=== PATIENT | female | born 1980 | race Caucasian/White ===

== ENCOUNTER 2024-02-06 13:27 | Observation (INO) | payer BC, SELFPAY ==
[2024-02-06 13:32] VITALS: BP 144/103; PULSE 132; RESP 20; TEMP 36.3; O2SAT 97; BMI 23.2
--- NOTE | 2024-02-06 14:25 | EX.ED.SAOD ---
HPI History of Present Illness Chief Complaint: Substance Abuse Informant: patient Onset/Context/Timing Onset: Today Context: Gradual Onset Timing: Continuous Worsened by: Nothing Relieved by: Nothing Associated Symptoms Associated Symptoms: Positive for diarrhea*, fever*, palpatations and no; Negative for vomiting*, rash*, seizure, tremor, change in mental status, suicidal ideation or homicidal ideation Narrative Narrative: Patient presents requesting detox from alcohol. Patient states she drinks approximately 1 case of beer per day. Patient also drinks some tequila drinks that are 9% alcohol. Patient drinks a 1-2 of these per day. Patient last use just prior to arrival in the emergency department. Patient admits to some diarrhea but denies any nausea or vomiting. Patient admits to some subjective fevers and chills. Patient also admits to some palpitations. Patient denies any chance of . Patient states she has been through detox in the past and was sober for 11 months before she relapsed 3 to 4 months ago. Patient states she has been drinking heavily for the past 2 months. PFSH PFSH Medical History Insomnia Anxiety Anemia Alcohol abuse Allergy/AdvReac Type Severity Reaction Status Date / Time codeine Allergy Mild Nausea Verified 02/06/24 13:31 Social History (Updated 02/06/24 @ 14:[address] Ej Rodríguez, DO) Smoking Status: Current every day smoker tobacco type: cigarettes alcohol intake: current alcohol intake frequency: 3 or more drinks per day Alcohol type: beer and hard liquor substance use type: marijuana ROS ROS ED Constitutional Constitutional ED: Reports chills, fever(s) and subjective Eyes Eyes: Denies blurry vision or change in vision ENT ENT ED: Reports rhinorrhea; Denies sore throat Cardiovascular Cardiovascular: Reports palpitations; Denies chest pain Respiratory/Chest Respiratory/Chest: Reports cough; Denies dyspnea Gastrointestinal Gastrointestinal: Reports diarrhea; Denies nausea or vomiting Genitourinary Genitourinary ED: Denies dysuria or hematuria Musculoskeletal Musculoskeletal: Denies back pain or neck pain Integumentary Denies abscess or rash Neurologic Neurologic: Denies headache(s) or weakness Allergic/Immunologic Allergic/Immunologic ED: Denies mouth swelling or urticaria EXAM Physical Exam Const Vital Signs: 02/06/24 13:32 Temperature 97.3 F L Temperature Source Temporal Pulse Rate 132 H Respiratory Rate 20 H Blood Pressure 144/103 H Blood Pressure Mean 116 Pulse Ox 97 Oxygen Delivery Method Room Air Positive well nourished and well developed General Appearance ED: well developed and NAD HEENT Reports moist mucous membranes Neck supple and no JVD Resp normal respiratory effort and clear to auscultation bilaterally Cardio regular rhythm Rate: tachycardic GI soft to palpation, non-tender and non-distended Neuro oriented x3, CN's II-XII intact bilaterally and no sensory deficits noted Lucas Coma Scale: document GCS findings Spontaneous Obeys Commands Oriented 15 Sensorium / Orientation: alert Psych mental status grossly normal and thought process normal MDM MDM MDM Narrative Medical decision making narrative: Medical screening labs will be obtained. CBC will be obtained to assess for leukocytosis and anemia. Basic metabolic profile will be obtained to assess for electrolyte abnormality and renal function. Serum alcohol level will be obtained to assess for alcohol intoxication. Urine drug screen will be obtained to assess for substance abuse. Serum hCG will be obtained to assess for . Treatment and Re-Evaluation Narrative: Case was discussed with the hospitalist. He will admit the patient to his service. Patient understood and was agreeable with the plan. All questions were answered. Discharge Plan Triage Chief Complaint: Substance Abuse ED Provider: Ej Rodríguez Dx/Rx/DC Orders Clinical Impression: Alcohol withdrawal, Tachycardia, Tobacco use disorder, Marijuana use Print Language: Lithuanian Disposition Disposition: Acute Care Hospital [facility]
[2024-02-06 14:41] LABS: Absolute Lymphocyte Count 2.58 X10^3/uL (0.83-4.51); Absolute Neutrophil Count 7.1 X10^3/uL (2.0-7.7); Basophil% 0.9 % (0-1); Eosinophil# 0.07 X10^3/uL; Eosinophils% 0.7 % (0-5); Hematocrit 49.9 % (37-47); Hemoglobin 16.5 g/dL (12.0-15.0); Lymphocyte # 2.58 X10^3/ul (0.83-4.51); Lymphocyte % 24.4 % (19-41); Mean Corp Hgb Conc 33.1 g/dL (32-36); Mean Corpuscular Hgb 31.3 pg (27.0-32.0); Mean Corpuscular Volume 94.5 fL (81-99); Mean Platelet Vol. 11.8 fl (6.2-12.0); Monocyte# 0.69 X10^3/uL; Monocyte% 6.5 % (0-10); NRBC Flagged by Analyzer 0 % (0-5); Neutrophil # 7.09 X10^3/uL (2.7-7.7); Neutrophil % 67.2 % (47-70); POSITIVE COUNT YES; Platelet Count 197 K/mm3 (150-450); RBC Distribution Width CV 13.7 % (11.6-14.6); RBC Distribution Width SD 47.8 fl (35.1-43.9); Red Blood Count 5.28 M/mm3 (4.2-5.4); White Blood Count 10.6 K/mm3 (4.4-11.0)
--- NOTE | 2024-02-06 14:55 | HP.PCM.HOS_ITS ---
HPI - General General Date of Admission: 02/06/24 Date of Service: 02/06/24 Chief Complaint: Wants alcohol detoxification/rehab HPI Narrative MAKEDA CHAIDEZ, is a 44 F with history of chronic alcohol use dependence, relapse and tolerance came to ED for alcohol detox and quitting. She usually drinks 24 beers tall boys every day. She had 3-4 beers today in the morning before she came to ED. She further said she was sober for 11 months and then started drinking 1 or 2 beer occasionally in June but for last few months she is drinking regularly. She was drinking tequila before being sober. But lately she has a strong physical craving for hard liquor but not drinking tequila but instead she drinking twisted tea or Mon[place] which is 9% alcohol. She also smokes a pack per day cigarettes and smokes marijuana. Denies other substance use including opioids, crack cocaine, ecstasy, bath salt or other antipsychotic drugs In ED, she is feeling withdrawal symptoms of numbness, anxiety, urge to move around/restlessness. No will tremors or DT She denies history of chronic alcoholic hepatitis or cirrhosis or other chronic stigmata of chronic liver disease. No fever Patient is further admitted [facility] Medical History Insomnia Anxiety Anemia Alcohol abuse Home Medications ?Medication ?Instructions ?Recorded ?Last Taken ?Type acamprosate 333 mg tablet,delayed 666 mg PO TID ALCOHOL DEPENDENCE 02/06/24 Unknown History release hydroxyzine pamoate 50 mg capsule 50 mg PO QHS ANXIETY 02/06/24 Unknown History norethindrone (contraceptive) 0.35 0.35 mg PO DAILY CONTROL 02/06/24 Unknown History mg tablet Allergy/AdvReac Type Severity Reaction Status Date / Time codeine Allergy Mild Nausea Verified 02/06/24 13:31 Social History Smoking Status: Current every day smoker tobacco type: cigarettes alcohol intake: current alcohol intake frequency: 3 or more drinks per day Alcohol type: beer and hard liquor substance use type: marijuana ROS ROS Narrative Constitutional: Reports fatigue and weakness. No fever. HEENT: Reports systems reviewed and no addt'l complaints, except as documented Respiratory/Chest: No acute shortness of breath or respiratory distress or wheezing. CVS: No chest pain pressure or tightness. Gastrointestinal: Denies coffee ground emesis, hematemesis or vomiting Genitourinary: Denies burning urination or new urinary tract symptoms Musculoskeletal: Denies acute joint pain or limited range of motion. No acute injury Neurologic: Denies seizure-like symptoms. No withdrawal seizure Psychiatric: Chronic alcohol use as described in HPI skin: No ulcer. No rash Endocrinology: Reports systems reviewed and no addt'l complaints, except as documented Hematologic/Lymphatic: Reports systems reviewed and no addt'l complaints, except as documented Rest 14 ROS are negative except as mentioned in HPI Vital Signs Vital Signs Vital Signs: 02/06/24 13:32 Temperature 97.3 F L Temperature Source Temporal Pulse Rate 132 H Respiratory Rate 20 H Blood Pressure 144/103 H Blood Pressure Mean 116 Pulse Ox 97 Oxygen Delivery Method Room Air Weight Weight: 133 lb 4.8 oz Body Mass Index (BMI) 23.2 Physical Exam Narrative General: Alert, Oriented x3, Cooperative HEENT: Atraumatic, PERRLA, EOMI, Normocephalic Oral: Oral mucosa dry no Gingival or Mucosal Lesions/ Ulcerations Neck: Supple, No JVD, Negative Carotid Bruits Chest wall/Lungs: Air entry diminished in bilateral lung bases. No crepitation/rhonchi Cardiovascular: Regular rate, Regular Rhythm, Normal S1, Normal S2, No M/G/R Abdomen: Bowel Sounds Present, Soft, Non Tender, Non-Distended : No dysuria. No renal angle tenderness. No suprapubic tenderness. Extremities: No edema, Capillary Refill Less than 3 Seconds Skin: No rashes, No breakdown Musculoskeletal: No Tenderness to Palpation of Joints or Extremities. ROM intact Neurological: Cranial nerves II-XII grossly intact, DTR 2+/4. No acute focal neurological deficit. Psych/Mental Status: Flat affect. Results Lab / Micro Data 02/06/24 14:20 02/06/24 14:20 Assessment & Plan Assessment/Plan (1) Alcohol withdrawal delirium, acute, hyperactive: PLAN: Plan This is a 44-year-old female being admitted for medical stabilization of acute alcohol withdrawal symptoms 1. Acute hyperactive alcohol withdrawal syndrome with history of chronic alcohol use, dependence, tolerance and relapse: Patient is being admitted on [facility] floor. Patient on phenobarbital based order set along with other adjunctive medications gabapentin, Bentyl, Vistaril, clonidine, Klonopin as needed for alcohol withdrawal symptom control. Patient is on thiamine and folate acid. CIWA monitor. catering sales manager 180 consulted. U tox is ordered. 2. Chronic smoking, nicotine dependence and marijuana use: Nicotine transdermal ordered. 3. Denies chronic alcoholic hepatitis or other liver disease: Labs CMP is ordered but technical problem with the analyzer. DVT prophylaxis: Low risk. Early ambulation encouraged. No prophylaxis indicated Laboratory Results 02/06/24 14:20: WBC 10.6, RBC 5.28, Hgb 16.5 H, Hct 49.9 H, MCV 94.5, MCH 31.3, MCHC 33.1, RDW Std Deviation 47.8 H, RDW Coeff of [place] 13.7, Plt Count 197, MPV 11.8, Immature Gran % (Auto) 0.300, Neut % (Auto) 67.2, Lymph % (Auto) 24.4, [place] % (Auto) 6.5, Eos % (Auto) 0.7, Baso % (Auto) 0.9, Absolute Neuts (auto) 7.1, Absolute Lymphs (auto) 2.58, Nucleated RBC % 0, Differential Comment SCANNED, Sodium Cancelled Charges/Coding Visit Charges Inpatient E&M: 39872 Init Hosp L3
[2024-02-06 15:07] LABS: Internal QC Validated? YES +Cl - CLEAR BKGD; Pregnancy, Serum, hCG Quali. NEGATIVE Negative
[2024-02-06 15:09] VITALS: BP 129/73; PULSE 84; RESP 18; TEMP 36.6; O2SAT 99
[2024-02-06 15:28] VITALS: BP 124/81; PULSE 89; RESP 18; O2SAT 100
[2024-02-06 15:37] LABS: Differential Indicated SCAN CRITERIA MET
[2024-02-06 15:41] LABS: Differential Comment SCANNED
[2024-02-06 16:16] LABS: Mucous, Urine 0 SEEN /hpf (<or=2+)
[2024-02-06 16:27] LABS: Color, Urine Yellow (Yellow); Glucose, Dipstick Normal (Normal); Ketone-Dipstick Negative (Negative); Leukocyte Esterase-Dipstick 500 /ul (Negative); Nitrite-Dipstick Negative (Negative); Occult Blood-Urine 25 /ul (Negative); Protein-Dipstick Negative (Negative); Specific Gravity, Urine 1.005 (1.002-1.030); Urine Bilirubin Dipstick Negative (Negative); Urine Clarity Sl. Cloudy (Clear); Urine Urobilinogen 1 mg/dl (Normal); Urine pH 6.5 (5.0 - 8.0)
[2024-02-06 16:42] LABS: White Blood Cells 10-25 SEEN /hpf (0-5)
[2024-02-06 16:43] LABS: Bacteria 1+ /hpf (None Seen); Red Blood Cells-Urine 0-5 SEEN /hpf (0-5); Squamous Epithelial Cells - UA 0-5 SEEN /hpf (5-10)
[2024-02-06 16:54] VITALS: BMI 20.1
[2024-02-06] MEDS: Phenobarbital 32.4 MG Tablet 64.8 MG PO ×2 (17:12→20:06)
[2024-02-06] MEDS: Lactated Ringers 1,000 ML 125 ML IV (17:12)
[2024-02-06] MEDS: hydrOXYzine PAM 25 MG Capsule 50 MG PO (17:26)
[2024-02-06 17:50] LABS: Prothrombin Time (Protime)PT. 13.6 SECONDS (11.7-14.9)
[2024-02-06 18:17] LABS: AST(SGOT) 93 U/L (15-37); Alanine Aminotransfer ALT/SGPT 104 U/L (13-56); Albumin, Serum 4.2 g/dL (3.2-5.0); Alkaline Phosphatase 51 U/L (45-117); Anion Gap 6 (5-15); BUN 3 mg/dL (7-18); BUN/Creat Ratio 4.1 RATIO (10-20); Calcium,Total 9.4 mg/dL (8.5-10.1); Chloride 106 mmol/L (98-107); Creatinine, Serum 0.73 mg/dL (0.55-1.02); EST Glomerular Filtration Rate 93 mL/min (>60); Est Glom Filt Rate - Afr Amer 112 mL/min (>60); Globulin 4.1 g/dL (2.2-4.2); Glucose 89 mg/dL (74-106); Potassium 4.3 mmol/L (3.5-5.1); Protein, Total 8.3 g/dL (6.4-8.2); Sodium Level 136 mmol/L (136-145)
[2024-02-06 18:17] LABS: Amphetamine Urine NEGATIVE (<1000 ng/mL); Barbiturate Urine NEGATIVE (< 200 ng/mL); Benzodiazepine Urine NEGATIVE (< 200 ng/mL); Cocaine Urine NEGATIVE (< 300 ng/mL); Ecstacy Urine NEGATIVE (< 500 ng/mL); Methadone Urine NEGATIVE (< 300 ng/mL); Opiates Urine NEGATIVE (< 300 ng/mL); PCP Urine NEGATIVE (< 25 ng/mL); THC Urine POSITIVE (< 50 ng/mL); Vista UDS pH Range 5
[2024-02-06 19:57] VITALS: BP 112/72; PULSE 98; RESP 16; TEMP 36.6; O2SAT 96
[2024-02-07] VITALS (8 sets, daily range): BP systolic 114–131; BP diastolic 64–100; PULSE 78–103; RESP 16–18; TEMP 36.1–36.8; O2SAT 97–99
[2024-02-07] MEDS: Phenobarbital 32.4 MG Tablet 64.8 MG PO ×6 (00:56→21:22)
--- NOTE | 2024-02-07 06:59 | PCM.PN.HOSP ---
Reason for Visit Reason for Visit: Alcohol detox Subjective Subjective Ms. Crook is a 44-year-old white female who presents emergency department which [facility] on 02/06/2024 for alcohol detoxification. She indicated she usually drinks about 24 beers (tall boys) every day. On the day of admission she had 3-4 beers in the morning before she came to the emergency department. She reported she had been sober for 11 months and started drinking 1-2 beers occasionally in June but over the last couple of months she has been drinking regularly. She was drinking tequila prior to being sober. She had strong cravings recently for hard liquor but has not had any tequila however has been drinking some twisted tea and higher ethanol content drinks. She also smokes cigarettes and marijuana. Upon presentation she was having withdrawal symptoms consistent with some numbness, anxiety, urged to move around and restlessness with no tremors or obvious DTs. On presentation her temperature was 97.3, heart rate 132, blood pressure was 144/103, respiratory 20 oxygen saturations were 97% room air. CBC was unremarkable, coags were unremarkable, electrolytes were unremarkable. Liver enzymes were slightly elevated with an AST of 93 and an ALT of 104. Bilirubin was normal. test was negative. UA was unremarkable. Toxicology screen was positive only for opiates and her alpha alcohol level was 137. Patient states that she is feeling better than yesterday. Feels much less shaky. Nausea is improved. Intensity of outpatient treatment. States she is from [place] but is willing to do Vivitrol if we can find a place for her to go. Objective Data Objective Data Vital Signs: Vital Signs Temp Pulse Resp BP Pulse Ox O2 Del Method 97.6 F L 87 16 129/90 H 97 Room Air 02/07/24 05:27 02/07/24 05:27 02/07/24 05:27 02/07/24 05:27 02/07/24 05:27 02/07/24 05:27 Oxygen Delivery Method Room Air Weight: 52.481 kg Body Mass Index (BMI) 20.1 Intake & Output: Intake and Output for Last 24 Hours 02/05/24 02/06/24 02/07/24 23:59 23:59 23:59 Intake Total 900 / 1100 1400 / 1400 Balance 900 / 1100 1400 / 1400 Lab / Micro Data 02/06/24 14:20 02/06/24 14:20 Labs: Laboratory Results - last 24 hr 02/06/24 14:20: WBC 10.6, RBC 5.28, Hgb 16.5 H, Hct 49.9 H, MCV 94.5, MCH 31.3, MCHC 33.1, RDW Std Deviation 47.8 H, RDW Coeff of [place] 13.7, Plt Count 197, MPV 11.8, Immature Gran % (Auto) 0.300, Neut % (Auto) 67.2, Lymph % (Auto) 24.4, [place] % (Auto) 6.5, Eos % (Auto) 0.7, Baso % (Auto) 0.9, Absolute Neuts (auto) 7.1, Absolute Lymphs (auto) 2.58, Nucleated RBC % 0, Differential Comment SCANNED, Sodium Cancelled 02/06/24 14:20: Sodium 136, Potassium Cancelled 02/06/24 14:20: Potassium 4.3, Chloride Cancelled 02/06/24 14:20: Chloride 106, Carbon Dioxide Cancelled 02/06/24 14:20: Carbon Dioxide 24.0, Anion Gap Cancelled 02/06/24 14:20: Anion Gap 6, BUN Cancelled 02/06/24 14:20: BUN 3 L, Creatinine Cancelled 02/06/24 14:20: Creatinine 0.73, Estim Creat Clear Calc Cancelled 02/06/24 14:20: Estim Creat Clear Calc 82.20, Est GFR (MDRD) Af Amer Cancelled 02/06/24 14:20: Est GFR (MDRD) Af Amer 112, Est GFR (MDRD) Non-Af Cancelled 02/06/24 14:20: Est GFR (MDRD) Non-Af 93, BUN/Creatinine Ratio Cancelled 02/06/24 14:20: BUN/Creatinine Ratio 4.1 L, Glucose Cancelled 02/06/24 14:20: Glucose 89, Calcium Cancelled 02/06/24 14:20: Calcium 9.4, Total Bilirubin 0.80, AST 93 H, ALT 104 H, Alkaline Phosphatase 51, Total Protein 8.3 H, Albumin 4.2, Globulin 4.1, Albumin/Globulin Ratio 1.0, Serum , Qual NEGATIVE, Ethyl Alcohol 137.0 02/06/24 14:50: Urine Color Yellow, Urine Clarity Sl. Cloudy, Urine pH 6.5, Ur Specific [place] 1.005, Urine Protein Negative, Urine Glucose (UA) Normal, Urine Ketones Negative, Urine Occult Blood 25 H, Urine Nitrite Negative, Urine Bilirubin Negative, Urine Urobilinogen 1 H, Ur Leukocyte Esterase 500 H, Urine RBC 0-5 SEEN, Urine WBC 10-25 SEEN, Ur Squamous Epith Cells 0-5 SEEN, Urine Bacteria 1+, Urine Mucus 0 SEEN, Urine Opiates Screen NEGATIVE, Urine Methadone Screen NEGATIVE, Ur Barbiturates Screen NEGATIVE, Ur Phencyclidine Scrn NEGATIVE, Ur Amphetamines Screen NEGATIVE, MDMA (Ecstasy) Screen NEGATIVE, U Benzodiazepines Scrn NEGATIVE, Urine Cocaine Screen NEGATIVE, U Cannabinoids Screen POSITIVE H, Ur Drug Screen Comment 02/06/24 17:18: PT 13.6, INR 1.0 Physical Exam Const alert, oriented x3, no apparent distress, average body habitus and well nourished Constitutional Narrative: Thin, middle-aged, white female, sitting up in bed, watching television and eating breakfast, appears comfortable, nontoxic HEENT head/scalp atraumatic and moist oral mucous membranes Head and Scalp: normocephalic Resp normal respiratory effort, no retractions and no use of accessory muscles Resp Narrative: Very few minimal and expiratory wheezes Auscultation: rales, rhonchi and wheezes Cardio regular rate, regular rhythm, S1 normal heart sound, S2 normal heart sound, no murmurs, no rub, no gallops and no clicks GI normal to inspection, nondistended, normoactive bowel sounds, soft to palpation and non-tender Extremity no clubbing, cyanosis or edema Neuro oriented x3, moves all extremities and no focal motor deficits Speech: speech normal Psych affect normal Psych Narrative: Very pleasant, eye contact is good, patient interacts appropriately Assessment & Plan Assessment/Plan (1) Alcohol withdrawal: (2) Tachycardia: (3) Transaminitis: PLAN: Plan Acute alcohol withdrawal -Patient has been drinking significantly recently -Continue phenobarbital taper -Continue supportive medications -Continue thiamine and folate -Continue CIWA -180 consultation--> discussed with liaison Transaminitis -Both AST and ALT are mildly elevated however ALT is greater than AST -Repeat again tomorrow and if not improving will workup further Tachycardia -Suspect related to acute withdrawal presentation -Has now resolved Elevated blood pressure -Suspect elevation at presentation is related to withdrawal and anxiety -Has now resolved -Will continue to monitor Marijuana use -Recommend discontinuation Tobacco abuse -Recommend cessation -Nicotine patch available if needed DVT prophylaxis -Low risk -Recommend frequent and early ambulation CODE STATUS -Full code Charges/Coding Visit Charges Inpatient E&M: 95036 Subs Hosp L2
[2024-02-07] MEDS: Thiamine Hydrochloride 100 MG Tablet PO (08:28)
[2024-02-07] MEDS: Folic Acid 1 MG Tablet PO (08:29)
[2024-02-07] MEDS: NORETHINDRONE 0.35 MG TABLET PO (08:29)
[2024-02-07] MEDS: Ensure Plus High Protein 120 ML LIQUID PO ×2 (14:01→21:32)
[2024-02-07] MEDS: hydrOXYzine PAM 25 MG Capsule 50 MG PO (16:34)
[2024-02-07] MEDS: Gabapentin 300 MG Capsule PO (16:34)
[2024-02-07] MEDS: 0.9% Saline Lock 10 ML Syringe IV (21:22)
[2024-02-08] MEDS: Phenobarbital 32.4 MG Tablet 64.8 MG PO ×3 (01:12→07:50)
[2024-02-08 01:16] VITALS: BP 115/86; PULSE 75; RESP 16; TEMP 36; O2SAT 98
[2024-02-08 05:17] VITALS: BP 118/90; PULSE 82; RESP 17; TEMP 36.3; O2SAT 99
[2024-02-08] MEDS: Thiamine Hydrochloride 100 MG Tablet PO (07:51)
[2024-02-08] MEDS: Folic Acid 1 MG Tablet PO (07:51)
[2024-02-08] MEDS: NORETHINDRONE 0.35 MG TABLET PO (07:53)
[2024-02-08] MEDS: Ensure Plus High Protein 120 ML LIQUID PO (07:55)
[2024-02-08 08:00] VITALS: BP 120/94; PULSE 84; RESP 12; TEMP 36.6; O2SAT 99
[2024-02-08 08:08] LABS: ALB/GLOB Ratio 1.2 RATIO (0.9-2.4); AST(SGOT) 43 U/L (15-37); Alanine Aminotransfer ALT/SGPT 67 U/L (13-56); Albumin, Serum 3.5 g/dL (3.2-5.0); Alkaline Phosphatase 50 U/L (45-117); Anion Gap 1 (5-15); BUN 6 mg/dL (7-18); BUN/Creat Ratio 7.8 RATIO (10-20); Calcium,Total 9.1 mg/dL (8.5-10.1); Chloride 107 mmol/L (98-107); Creatinine, Serum 0.77 mg/dL (0.55-1.02); EST Glomerular Filtration Rate 87 mL/min (>60); Est Glom Filt Rate - Afr Amer 105 mL/min (>60); Estimated Creatinine Clearance 77.93 ml/min; Glucose 84 mg/dL (74-106); Potassium 4.1 mmol/L (3.5-5.1); Protein, Total 6.5 g/dL (6.4-8.2); Sodium Level 137 mmol/L (136-145)
--- NOTE | 2024-02-08 11:01 | DS.PCM_ITS ---
Providers Date of Admission: 02/06/24 Date of Discharge: 02/08/24 Primary Care Physician: No Primary Care Phys Reason For Visit: ALCOHOL DETOX Diagnosis Discharge Diagnosis (1) Alcohol withdrawal: Status: Acute Code(s): F10.939 - Alcohol use, unspecified with withdrawal, unspecified (2) Tachycardia: Status: Acute Code(s): R00.0 - Tachycardia, unspecified (3) Transaminitis: Status: Acute Code(s): R74.01 - Elevation of levels of liver transaminase levels Medications at Discharge Home Medications hydroxyzine pamoate 50 mg capsule 50 mg PO QHS ANXIETY 02/06/24 norethindrone (contraceptive) 0.35 mg tablet 0.35 mg PO DAILY CONTROL 02/06/24 Hospital Course Operations None Procedures None Summary of Care Provided Minutes Spent on Discharge: 37 Hospital Course: Ms. Crook is a 44-year-old white female who presents emergency department which [facility] on 02/06/2024 for alcohol detoxification. She indicated she usually drinks about 24 beers (tall boys) every day. On the day of admission she had 3-4 beers in the morning before she came to the emergency department. She reported she had been sober for 11 months and started drinking 1-2 beers occasionally in June but over the last couple of months she has been drinking regularly. She was drinking tequila prior to being sober. She had strong cravings recently for hard liquor but has not had any tequila however has been drinking some twisted tea and higher ethanol content drinks. She also smokes cigarettes and marijuana. Upon presentation she was having withdrawal symptoms consistent with some numbness, anxiety, urged to move around and restlessness with no tremors or obvious DTs. On presentation her temperature was 97.3, heart rate 132, blood pressure was 144/103, respiratory 20 oxygen saturations were 97% room air. CBC was unremarkable, coags were unremarkable, electrolytes were unremarkable. Liver enzymes were slightly elevated with an AST of 93 and an ALT of 104. Bilirubin was normal. test was negative. UA was unremarkable. Toxicology screen was positive only for opiates and her EtOH level was 137. Patient was admitted to the medical floor and started on a phenobarbital taper as well as thiamine and folate with supportive medications for symptom control related to withdrawal symptoms. She did quite well and had an eventful detoxification. She was seen by 180 and was deemed appropriate for Vivitrol injection prior to discharge. She was given Vivitrol and will follow-up in [place] for ongoing Vivitrol after discharge. Patient was discharged home in stable condition on 02/08/2024. Discharge diagnoses: Acute alcohol withdrawal Transaminitis Tachycardia-resolved Elevated blood pressure-resolved Marijuana use Tobacco abuse Physical Exam Const alert, oriented x3, no apparent distress, average body habitus, no limitations, healthy appearing and well nourished Constitutional Narrative: Thin, middle-aged, white female, sitting up in bed, watching television, appears comfortable, nontoxic General Appearance: cooperative, comfortable, well kempt and well developed Orientation / Consciousness: awake, oriented to person, oriented to place and oriented to time Exam Limitations: no limitations HEENT normocephalic, head/scalp atraumatic, hearing grossly normal bilaterally and moist oral mucous membranes Eyes PERRL, EOMs intact bilaterally and conjunctivae normal Eyes Narrative: No scleral icterus Neck no lymphadenopathy and supple Neck Narrative: Trachea midline, no thyroid enlargement Resp normal respiratory effort, no retractions, no use of accessory muscles and clear to auscultation bilaterally Auscultation: rales, rhonchi and wheezes Cardio regular rate, regular rhythm, S1 normal heart sound, S2 normal heart sound, no murmurs, no rub, no gallops and no clicks GI normal to inspection, nondistended, normoactive bowel sounds, soft to palpation and non-tender Extremity no clubbing, cyanosis or edema Extremity Narrative: Pedal pulses are 2+ Neuro oriented x3, moves all extremities and no focal motor deficits Speech: speech normal Psych affect normal Psych Narrative: Very pleasant, eye contact is good, patient interacts appropriately Medical Records Data Medical Nutrition Assessment Dietitian: Malnutrition Criteria Met Start: 02/07/24 12:44 Freq: Status: Active Protocol: Document 02/07/24 12:44 RMA (Rec: 02/07/24 12:45 RMA [id number]) Nutrition Malnutrition Evidence of Malnutrition Exists Yes Malnutrition (severe): Chronic,Social/Behavioral/ Environmental Evidenced By Suboptimal Energy Intake ( Severe),Weight Loss (Severe) Clinical Problem Chronic Disease or Condition Related Malnutrition Etiology severe protein-calorie malnutrition in the context of chronic alcohol abuse related to inadequate energy/nutrient intake Signs/Symptoms as evidenced by PO less than 50% meals and oral intake meeting less than 50% estimated nutrition needs x 6- 12 months; calculated unintentional weight loss ~10 -12% x 6-12 months and BMI 20. 2 Status Active Problem Recommendation Dietitian Recommendations/Changes Continue liberalized regular diet with snacks daily as tolerated. Will add 120mL ensure plus HP 4 times per day w/ medpass. Adjust ONS as needed to optimize PO and prevent further energy depletion. Weight / BMI Weight Weight: 52.5 kg Body Mass Index (BMI) 20.1 ABG / Lab / Microbiology Data 02/06/24 14:20 02/08/24 07:05 Laboratory: Laboratory Results - last 24 hr 02/08/24 07:05: Sodium 137, Potassium 4.1, Chloride 107, Carbon Dioxide 29.0, A nion Gap 1 L, BUN 6 L, Creatinine 0.77, Estim Creat Clear Calc 77.93, Est GFR (MDRD) Af Amer 105, Est GFR (MDRD) Non-Af 87, BUN/Creatinine Ratio 7.8 L, Glucose 84, Calcium 9.1, Total Bilirubin 0.60, AST 43 H, ALT 67 H, Alkaline Phosphatase 50, Total Protein 6.5, Albumin 3.5, Globulin 3.0, Albumin/Globulin Ratio 1.2 D/C Instructions Discharge Diet: No restrictions Meaningful Use Info Meaningful Use Meaningful Use Diagnoses (Choose all that apply): None applicable Ischemic Stroke Statin Dosing Therapy Reference: STATIN DOSE THERAPY REFERENCE: * Patients > 75 years receive moderate or high dose statin therapy. * Patients 75 years or YOUNGER should receive HIGH intensity statin dose unless contraindicated. You will be required to document reason for non-treatment if statin daily dose does not meet guidelines. HIGH DOSE STATIN THERAPY DAILY Atorvastatin > than or = to 40 mg Rosuvastatin > than or = to 20 mg Amlodipine + Atorvastatin > than or = to 2.5/40 mg Ezetimibe + Simvastatin 10/80 mg Simvastatin 80mg Discharge Plan Admission Admit Date/Time: 02/06/24 14:54 Primary Reason for Your Visit: Alcohol detox Attending Provider: Leslie Medina Primary Care Provider: Care Physician,No Primary Consulting Providers: Miguel Angel Giles Instructions Additional Instructions / Restrictions: Follow-up for ongoing Vivitrol per instructions from 180 liaison Discharge Orders/Prescriptions Prescriptions: Discontinued acamprosate 333 mg tablet,delayed release (DR/EC) 666 mg PO TID No Action hydroxyzine pamoate 50 mg capsule 50 mg PO QHS norethindrone (contraceptive) 0.35 mg tablet 0.35 mg PO DAILY Referrals / Follow Up: Care Physician,No Primary [Primary Care Provider] - Disposition Disposition (needs filled in before D/C Order can be placed): Home, Self Care Charges/Coding Visit Charges Inpatient E&M: 67045 Disch Hosp >30min
--- NOTE | 2024-02-08 11:26 | PHA.DC.MR.R ---
Pharmacy [place] Med Reconciliation Pharmacy Service has performed discharge medication reconciliation for this patient. The patient's discharge medication list was reviewed for discrepancies and discrepancies were resolved. Medications at Discharge Home Medications hydroxyzine pamoate 50 mg capsule 50 mg PO QHS ANXIETY 02/06/24 norethindrone (contraceptive) 0.35 mg tablet 0.35 mg PO DAILY CONTROL 02/06/24
[2024-02-08] MEDS: Vivitrol ID Card 1 EACH MC (13:01)
[2024-02-08] MEDS: Vivitrol Administration Needles 1 EACH MC (13:01)
[2024-02-08] MEDS: Naltrexone Microspheres 380 MG SYRINGE IM (13:01)
== END 2024-02-08 13:14 | disposition home or self-care (01) | DRG 896 ==
LOC: ED 15:13 → MS3 02-07 06:55
PROVIDERS: Admitting Provider Internal Medicine; Emergency Provider Emergency Medicine; Visit Provider Internal Medicine
DX: F10.231 Alcohol dependence with withdrawal delirium (principal); E43 Unspecified severe protein-calorie malnutrition; F12.90 Cannabis use, unspecified, uncomplicated; F17.210 Nicotine dependence, cigarettes, uncomplicated; R74.01 Elevation of levels of liver transaminase levels; Y90.6 Blood alcohol level of 120-199 mg/100 ml; Z79.899 Other long term (current) drug therapy; R03.0 Elevated blood-pressure reading, without diagnosis of hypertension; R00.0 Tachycardia, unspecified
CPT/HCPCS: 36415; 80053; 80307; 81001; 82077; 84703; 85025; 85610; 96360; 96361; 97802; 99221; 99284; A4216; G0378